=== PATIENT | male | born 1935 | race Caucasian/White ===

== ENCOUNTER 2018-04-23 10:32 | Day surgery (SDC) | payer MEDICARE ==
[~2018-04-23] VITALS: Ht 171.4 cm; Wt 99.5 kg
[~2018-04-23 10:32] MED LIST: ASCO100019 PO; ASPI-621 PO; ATEN25TA PO; CHOL100012 PO; DOXA8TAB2 PO; FINA5TAB PO; FLUT9.9S NAS; GLUCOSAMINE 1,1 EACH PO; MV-M1TAB3 PO; NYST5000 PO; OMEG1CAP57 PO; OMEP20CA9 PO; PRAV40TA PO; VITA400C42 PO; ZOLP10TA5 PO
[2018-04-23 11:25] VITALS: BP 151/89
[2018-04-23] MEDS ORDERED: LOSA100T6 PO (11:25)
[2018-04-23] MEDS ORDERED: FENTANYL PF 100 MCG/2ML ONE (13:04)
[2018-04-23] MEDS ORDERED: MIDAZOLAM 1 MG/ML, 2ML ONE (13:04)
[2018-04-23] MEDS ORDERED: VERAPAMIL 2.5 MG/ML, 2ML ONE ×2 (13:04→14:01)
[2018-04-23] MEDS ORDERED: HEPARIN 1,000 UNITS/ML, 10ML ONE (13:04)
[2018-04-23] MEDS ORDERED: LIDOCAINE-MPF 2%, 2ML ONE ×2 (13:30→13:59)
[2018-04-23] MEDS ORDERED: ISOS30TA8 PO (15:29)
== END 2018-04-23 17:00 | disposition home or self-care (01) ==
LOC: CACL 10:32
PROVIDERS: ATTEND Internal Medicine Cardiovascular Disease
DX: I25.110 Atherosclerotic heart disease of native coronary artery with unstable angina pectoris (principal); E78.5 Hyperlipidemia, unspecified; I10 Essential (primary) hypertension; K21.9 Gastro-esophageal reflux disease without esophagitis; N40.0 Benign prostatic hyperplasia without lower urinary tract symptoms; G47.33 Obstructive sleep apnea (adult) (pediatric); Z87.440 Personal history of urinary (tract) infections; Z87.39 Personal history of other diseases of the musculoskeletal system and connective tissue
CPT/HCPCS: 93458; 93571; 99156; 99157; C1769; C1894; J1644; J2250; J3010; J3490; Q9967